=== PATIENT | female | born 1965 | race Caucasian/White ===

== ENCOUNTER → 2020-10-23 09:22 | Outpatient (BNVA) | payer OTHER, SELFPAY | PROVIDERS: PCP Family Medicine; Visit Provider Orthopaedic Surgery | DX: M67.441 Ganglion, right hand (principal); S63.630 Sprain of interphalangeal joint of right index finger | CPT/HCPCS: 20612; 99202 ==

== ENCOUNTER 2020-11-22 13:57 | Day surgery (SDC) | payer OTHER, SELFPAY ==
--- NOTE | ~2020-11-22 | FL_ITS ---
EXAMINATION: XR FLUOROSCOPY WITH IMAGES CLINICAL INFORMATION: Right PIP joint injection COMPARISON: None. TECHNIQUE: Fluoroscopy performed by Na Epperson. Fluoroscopy time: 8.8 seconds DAP: 3881.9 uGycm2 Images: 1 FINDINGS: There is a radiopaque needle overlying the second digit proximal interphalangeal joint. FL/FL guidance in OR IMPRESSION: Fluoroscopic guidance localizing to the second digit proximal interphalangeal joint. Please refer to procedural report for further information.
--- NOTE | 2020-11-22 14:13 | MHC.SHP ---
Pre-Procedural Eval Section B Chief Complaint: right index finger sprain Plan I have reviewed the history and physical and performed a pertinent physical examination on my patient. No changes have occurred unless specified.
--- NOTE | 2020-11-22 14:14 | PM.PRCOR ---
Brief Operative Note Date of procedure: 11/22/20 Pre-op diagnosis: rt IF PIP oa Post-op diagnosis: same Procedure: RT IF PIP steroid injection Anesthesia: none Surgeon: Na Epperson Estimated blood loss (mL): 0 IV fluids (mL): 0 Urine output (mL): 0 Pathology: none sent Condition: stable Disposition: PACU
[2020-11-22 14:15] VITALS: BP 140/87; PULSE 97; RESP 16; TEMP 36.6; O2SAT 96
[2020-11-22 14:16] VITALS: BMI 21.9
--- NOTE | 2020-11-22 14:16 | W.PM.OPN ---
Operative Note Operative Note Date of Service: 11/22/20 Narrative: Operative Note Preop diagnosis: 1. Right index finger PIP joint osteoarthritis Postop diagnosis: 1. SAMe Procedure: 1. Right index finger PIP joint steroid injection Surgeon: Na Epperson MD Anesthesia: None EBL: None Tourniquet time: None Specimens: None Complications: None Disposition: Brought to recovery room in stable condition Plan: Follow-up p.r.n. Indications: The patient is 55 years old, with a right index finger PIP joint osteoarthritis. Procedure: Injection #1 : The risks and benefits of a steroid injection including but not limited to risk of damage to blood vessels, nerve, tendon, infection, skin bleaching, persistent or worsening pain, and failure to improve symptoms were discussed with the patient and they wish to proceed with the steroid injection. Once consent was obtained the right hand was sterilely prepped. The right index finger PIP joint was then injected with a combination of 1 mL of (40 mg/ml} Depo-Medrol and 0.25 % plain Marcaine using the fluoroscan for needle guidance. The patient appears to have tolerated the procedure well and with no complications.
[2020-11-22 15:14] VITALS: BP 148/85; PULSE 85; RESP 20; TEMP 37.3; O2SAT 96
== END 2020-11-22 15:24 | disposition home or self-care (01) ==
PROVIDERS: PCP Family Medicine; Visit Provider Orthopaedic Surgery
PROC: (CPT 20600; principal; 2020-11-22 15:20)
DX: M19.041 Primary osteoarthritis, right hand (principal)
CPT/HCPCS: 20600; J1040